=== PATIENT | male | born 1990 ===

== ENCOUNTER 2019-07-29 02:37 | Inpatient (IN) ==
[2019-07-29] MEDS ORDERED: ONDANSETRON 4 MG/2 ML VIAL IV PRN (03:15)
[2019-07-29] MEDS ORDERED: MORPHINE 4 MG/1 ML VIAL IV PRN (03:15)
[2019-07-29] MEDS ORDERED: LEVOFLOXACIN INJ 750 MG in PREMIX 1 EACH IV SCH (04:00)
[2019-07-29] MEDS: DEXTROSE 5% NACL 0.45% 1,000 ML IV SCH ×3 (04:40→21:55)
[2019-07-29 05:55] LABS: Basophils % 0.2 % (0.0-0.8); Eosinophils % 0.1 % (0.00-10.9); Hematocrit 36.8 VOL% (42.0-52.0); Hemoglobin 12.4 GM/DL (14.0-18.0); Immature Granulocytes % 0.5 %; Immature Granulocytes Absolute 0.09 #; Lymphocytes # 1.3 10*3/uL (1.4-4.0); Lymphocytes % 6.3 % (21.2-54.2); Mean Corpuscular HGB Conc 33.7 GM/DL (32-36); Mean Corpuscular Volume 81.6 FL (87-102); Monocytes % 8.9 % (1.7-12.7); Platelet Count 266 T/CUMM (130-400); Red Blood Count 4.51 MC/CUMM (3.8-5.5); Red Cell Distribution Width 12.3 % (9.3-17.3); White Blood Count 19.9 T/CUMM (4-12)
[2019-07-29 06:26] LABS: Albumin 2.7 G/DL (3.4-5.0); Bilirubin,Total 1.7 MG/DL (0.2-1.0); Calcium 8.1 MG/DL (8.5-10.1); Osmolality,Calculated 276.1 MOS/KG (273-304); Total Protein 6.6 G/DL (6.4-8.3)
[2019-07-29] MEDS ORDERED: CLINDAMYCIN INJ 900 MG in PREMIX 1 EACH IV ONE (07:26)
[2019-07-29] MEDS ORDERED: LIDOCAINE 1%/EPI INJ 20 ML VIAL ONE (08:00)
[2019-07-29] MEDS ORDERED: BUPIVACAINE MPF 0.25% 30 ML VIAL ONE (08:00)
[2019-07-29] MEDS: PANTOPRAZOLE 40 MG VIAL IV SCH (08:19)
[2019-07-29] MEDS ORDERED: TISSUE ADHESIVE 1 EACH APPLICATOR TOP ONE (09:32)
[2019-07-29] MEDS ORDERED: DEXAMETHASONE 4 MG/1 ML VIAL ONE (10:11)
[2019-07-29] MEDS ORDERED: ONDANSETRON 4 MG/2 ML VIAL ONE (10:11)
[2019-07-29] MEDS ORDERED: propofoL 200 MG/20 ML VIAL IV ONE (10:11)
[2019-07-29] MEDS ORDERED: KETOROLAC 30 MG/1 ML VIAL ONE (10:11)
[2019-07-29] MEDS ORDERED: GLYCOPYRROLATE 0.4 MG/2 ML VIAL ONE (10:11)
[2019-07-29] MEDS ORDERED: MIDAZOLAM 2 MG/2 ML VIAL ONE (10:11)
[2019-07-29] MEDS ORDERED: LIDOCAINE 2% 5 ML VIAL ONE (10:11)
[2019-07-29] MEDS ORDERED: SEVOFLURANE 1 UNIT/15 MINUTE INH ONE (10:11)
[2019-07-29] MEDS ORDERED: fentaNYL 100 MCG/2 ML VIAL ONE (10:11)
[2019-07-29] MEDS ORDERED: PHENYLEPHRINE 1 MG/10 ML SYRINGE IV ONE (10:12)
[2019-07-29] MEDS ORDERED: ROCURONIUM 100 MG/10 ML VIAL IV ONE (10:12)
[2019-07-29] MEDS ORDERED: SUCCINYLCHOLINE 200 MG/10 ML VIAL ONE (10:12)
[2019-07-29] MEDS ORDERED: LACTATED RINGERS 1,000 ML IV ONE (10:12)
[2019-07-29] MEDS ORDERED: NEOSTIGMINE 10 MG/10 ML VIAL ONE (10:12)
[2019-07-29] MEDS: metroNIDAZOLE INJ 500 MG in PREMIX 1 EACH IV SCH ×2 (11:34→18:51)
[2019-07-29] MEDS: KETOROLAC 30 MG/1 ML VIAL IV SCH ×2 (15:57→21:55)
[2019-07-30] MEDS: metroNIDAZOLE INJ 500 MG in PREMIX 1 EACH IV SCH (03:13)
[2019-07-30] MEDS: KETOROLAC 30 MG/1 ML VIAL IV SCH ×2 (05:13→09:17)
[2019-07-30 05:52] LABS: Basophils % 0.2 % (0.0-0.8); Hematocrit 37.8 VOL% (42.0-52.0); Hemoglobin 12.6 GM/DL (14.0-18.0); Immature Granulocytes % 0.6 %; Lymphocytes % 5.6 % (21.2-54.2); Mean Corpuscular HGB Conc 33.3 GM/DL (32-36); Mean Corpuscular Volume 82.4 FL (87-102); Mean Platelet Volume 10.4 FL (9.6-12.0); Monocytes % 8.2 % (1.7-12.7); Neutrophils % 85.4 % (38.7-73.9); Platelet Count 293 T/CUMM (130-400); Red Blood Count 4.59 MC/CUMM (3.8-5.5); Red Cell Distribution Width 12.2 % (9.3-17.3)
[2019-07-30 06:03] LABS: Calcium 8.6 MG/DL (8.5-10.1); Osmolality,Calculated 279.5 MOS/KG (273-304)
[2019-07-30 07:50] VITALS: BP 104/52
[2019-07-30] MEDS: PANTOPRAZOLE 40 MG VIAL IV SCH (09:00)
[2019-07-30] MEDS ORDERED: CIPROFLOXACIN 500 MG TABLET PO SCH (09:00)
[2019-07-30] MEDS: DEXTROSE 5% NACL 0.45% 1,000 ML IV SCH (09:40)
[2019-07-30] MEDS ORDERED: metroNIDAZOLE 500 MG TABLET PO SCH (14:00)
== END 2019-07-30 12:23 | disposition home or self-care (01) | DRG 340 ==
LOC: EDBD → EDUNIT# → N.ED 02:37 → N.EDINP 03:14 → N.3E 03:31
PROVIDERS: ADMIT Surgery; ATTEND Surgery